=== PATIENT | female | born 1955 | race Caucasian/White ===

== ENCOUNTER 2017-03-12 01:21 | Emergency (ER) | payer BC | END 2017-03-12 02:55 | disposition home or self-care (01) | LOC: D.ER 01:21 | DX: S69.91XA Unspecified injury of right wrist, hand and finger(s), initial encounter (principal); X58.XXXA Exposure to other specified factors, initial encounter; Y93.89 Activity, other specified; Y92.89 Other specified places as the place of occurrence of the external cause; R22.9 Localized swelling, mass and lump, unspecified; I10 Essential (primary) hypertension ==